=== PATIENT | male | born 1990 | race Caucasian/White ===

== ENCOUNTER → 2017-12-26 14:51 | Outpatient (CLI) | payer SELFPAY ==
[2017-12-26 15:20] LABS: Pathologist Comment May follow
[2017-12-26 15:54] LABS: RBC /Synovial Fluid 0.022 10^6/uL (0); Synovial Fld Mononuclear WBC % 8.8 %; Synovial Fld Polynuclear WBC # 6.902 10^3/ul; Synovial Fld Polynuclear WBC % 91.2 %
[2017-12-26 16:59] LABS: AUTO B FLUID DILUENT BKGD CT WBC <0.1 RBC <0.01 (W<.1,R<.01); Viscosity / Synovial Fluid Sl. Viscous (HIGH)
[2017-12-26 17:21] LABS: Lymph 1 %; Monocyte /Synovial Fluid 4 %; Neutrophil 95 % (0-25)
[2017-12-26 17:27] LABS: Body Fluid QC Type(s) BF1Q,BF2Q
[2017-12-26 17:29] LABS: Appearance /Synovial Fluid Cloudy (CLEAR); Color / Synovial Fluid Pink (Pale Yellow); Source / Synovial Fluid R KNEE
[2017-12-26 17:30] LABS: Source- Body Fluid SYNOVIAL
[2017-12-27 15:14] LABS: Pathologist Review Reviewed
== END ==
LOC: LAB 14:56 → LABSPEC 14:57
PROVIDERS: Visit Provider Physician Assistant
DX: S80.01XA Contusion of right knee, initial encounter (principal); M70.41 Prepatellar bursitis, right knee
CPT/HCPCS: 87070; 87075; 87077; 87186; 87205; 89050; 89051; 89060